=== PATIENT | female | born 1995 | race Caucasian/White ===

== ENCOUNTER 2019-09-20 03:53 | Emergency (ER) | payer BC, OTHER ==
--- NOTE | 2019-09-20 04:04 | ERPHSYRPT ---
- History of Present Illness Time Seen by Provider: 09/20/19 04:04 Source: patient Exam Limitations: no limitations Physician History: Pt is here with c/c of low back pain that has been chronic since the age of 16 y.o but worse in the last 3 days to where it is difficult to walk. Pt notes that she has had difficulty walking and moving at all. Pt states that she took Naprosyn around 9 pm yesterday and it didn't help. Pt drove herself her to the hospital. Pt has no other medical issues except for anxiety and depression. Timing/Duration: day(s) (3) Method of Injury: unknown, other (sttes no injury) Quality: sharp, stabbing Back Pain Location: lumbar spine Severity of Pain-Max: severe Severity of Pain-Current: severe Modifying Factors: Improves With: movement Associated Symptoms: lower back pain, muscle spasms, No dizziness, No numbness in legs/feet, No weakness, No sensory/motor loss, No tingling in legs/feet Previous symptoms: same symptoms as today, other (pt states that she has a diagnosis of unlevel pelvis and has worn kaitlynn lifts for 2 years without help. ) Allergies/Adverse Reactions: bee venom protein (honey bee) Allergy (Verified 09/20/19 04:20) Home Medications: Venlafaxine HCl [Venlafaxine HCl ER] 37.5 mg PO DAILY 09/20/19 [History] hydrOXYzine HCl [Hydroxyzine HCl] 50 mg PO QID PRN 09/20/19 [History] Hx Tetanus, Diphtheria Vaccination/Date Given: Yes Hx Influenza Vaccination/Date Given: No Hx Pneumococcal Vaccination/Date Given: No - Review of Systems Constitutional: No Symptoms, No Fever Eyes: No Symptoms Ears, Nose, & Throat: No Symptoms Respiratory: No Symptoms Cardiac: No Symptoms Abdominal/Gastrointestinal: No Symptoms Genitourinary Symptoms: No Symptoms Musculoskeletal: Back Pain, Joint Pain (lumbosacral junction at right SI) Skin: No Symptoms Neurological: No Symptoms Psychological: No Symptoms Endocrine: No Symptoms All Other Systems: Reviewed and Negative - Past Medical History Pertinent Past Medical History: Yes Neurological History: No Pertinent History ENT History: No Pertinent History Cardiac History: No Pertinent History Respiratory History: No Pertinent History Endocrine Medical History: No Pertinent History Musculoskeletal History: Other (uneven pelvis or short leg and chronic back pain ) History: No Pertinent History Psycho-Social History: Anxiety, Depression - Past Surgical History Past Surgical History: No Neuro Surgical History: No Pertinent History Cardiac: No Pertinent History Respiratory: No Pertinent History Gastrointestinal: No Pertinent History Genitourinary: No Pertinent History Musculoskeletal: Other (chronic back pain and "unlevel pelvis") Female Surgical History: No Pertinent History - Social History Smoking Status: Former smoker Exposure to second hand smoke: Yes Drug Use: none Patient Lives Alone: No Significant Family History: no pertinent family hx - Female History Hx Now: No ([facility] 2 weeks ago and on BCP's) - Nursing Vital Signs Nursing Vital Signs: Initial Vital Signs Pulse Rate 104 H 09/20/19 03:58 Respiratory Rate 13 09/20/19 03:58 Blood Pressure 122/84 09/20/19 03:58 O2 Sat by Pulse Oximetry 99 09/20/19 03:58 Pain Scale Pain Intensity [Right Hip] 7 Pain Intensity 3 - Physical Exam General Appearance: mild distress, alert, anxiety Eye Exam: PERRL/EOMI Neck Exam: normal inspection Respiratory Exam: normal breath sounds Cardiovascular Exam: regular rate/rhythm Gastrointestinal Exam: soft Pelvic Exam: not done Rectal Exam: not done Back Exam: normal range of motion, vertebral tenderness (minimal), decreased range of motion (due to pain, there is passive ROM with pain voiced by pt. ), muscle spasm, point tenderness (right SI joint) Extremity Exam: normal inspection, limited range of motion, No normal range of motion (Pt limits ROM due to pain. 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, sensation nml, No motor deficits, No sensory deficit, No disoriented, No confusion, No motor weakness, No facial droop, No slurred speech Skin Exam: normal color, warm, dry SpO2 Interpretation: normal SpO2: 99 O2 Delivery: Room Air Ordered Tests: Active Orders 24 hr Category Date Time Status LUMBAR SPINE W/O [CT] Stat Exams 09/20/19 04:37 Taken CULTURE,URINE Stat Lab 09/20/19 07:02 Received UA W/RFX UR CULTURE Stat Lab 09/20/19 07:02 Completed Medication Summary Discontinued Medications Generic Name Dose Route Start Last Admin Trade Name Freq PRN Reason Stop Dose Admin Cyclobenzaprine HCl 10 mg 09/20/19 06:16 Cyclobenzaprine 10 Mg PO 10/20/19 06:15 TID PRN PRN MUSCLE SPASMS Ketorolac Tromethamine 60 mg 09/20/19 04:38 09/20/19 04:47 Toradol 30 Mg Injection IM 09/20/19 04:39 60 mg STAT ONE Administration Ketorolac Tromethamine Confirm 09/20/19 04:42 Toradol 30 Mg Injection Administered 09/20/19 04:43 Dose 60 mg .ROUTE .STK-MED ONE Ketorolac Tromethamine 10 mg 09/20/19 06:15 Toradol 10 Mg Tablet PO 09/25/19 06:14 Q8H PRN PRN MODERATE PAIN Lab/Rad Data: Laboratory Results 09/20/19 Range/Units 07:02 Urine Color YELLOW (YELLOW) Urine Appearance SLIGHTLY CLOUDY (CLEAR) Urine pH 6.0 (5-6) Ur Specific [place] 1.025 (1.005-1.025) Urine Protein NEGATIVE (Negative) Urine Ketones NEGATIVE (NEGATIVE) Urine Blood NEGATIVE (0-5) Chele/ul Urine Nitrite NEGATIVE (NEGATIVE) Urine Bilirubin NEGATIVE (NEGATIVE) Urine Urobilinogen NEGATIVE (0-1) mg/dL Ur Leukocyte Esterase MODERATE (NEGATIVE) Urine WBC (Auto) 6-10 (0-5) /HPF Urine RBC (Auto) 0-2 (0-2) /HPF U Epithel Cells (Auto) MODERATE (FEW) /HPF Urine Bacteria (Auto) MODERATE (NEGATIVE) /HPF Urine Mucus (Auto) SLIGHT (NEGATIVE) /HPF Urine Culture Reflexed YES (NO) Urine Glucose NEGATIVE (NEGATIVE) mg/dL - Progress Progress: improved Progress Note: 09/20/19 06:[address] results showing 1. Bulging of the annuli with impingment on the neural foramina and spinasl stenosis at L4-5 and L5-S1, with central disc protrusion or herniation suspected at L5 S1. - Departure Departure Disposition: Home Clinical Impression: Lumbosacral strain, Lumbar disc herniation Condition: Stable Critical Care Time: No Referrals: NORMA MARMOLEJO [employer] EMPLOYMENT [employer]IATOR [Primary Care Provider] - Instructions: Herniated Disc Prescriptions: Ketorolac Tromethamine [Toradol] 10 mg PO Q8HPRN PRN 7 Days #10 tablet PRN Reason: Pain Cyclobenzaprine HCl 10 mg [Cyclobenzaprine 10 MG] 10 mg PO TID #10 tablet Prednisone 20 mg [Deltasone 20 mg] 20 mg PO DAILY 10 Days #11 tablet
[2019-09-20] MEDS ORDERED: TORAdol 30 mg Injection IM ONE (04:38)
[2019-09-20] MEDS ORDERED: TORAdol 30 mg Injection ONE (04:42)
[2019-09-20] MEDS ORDERED: TORAdol 10 MG TABLET PO PRN (06:15)
[2019-09-20] MEDS ORDERED: Cyclobenzaprine 10 MG PO PRN (06:16)
[2019-09-20 07:05] VITALS: BP 103/71; PULSE 84
[2019-09-20 07:11] LABS: Appearance SLIGHTLY CLOUDY (CLEAR); Bacteria MODERATE /HPF (NEGATIVE); Bilirubin NEGATIVE (NEGATIVE); Blood NEGATIVE Ery/ul (0-5); Epithelial Cells MODERATE /HPF (FEW); Glucose NEGATIVE (NEGATIVE); Ketones NEGATIVE (NEGATIVE); Leukocyte Esterase MODERATE (NEGATIVE); Mucus SLIGHT /HPF (NEGATIVE); Nitrite NEGATIVE (NEGATIVE); Protein,Urine Dip NEGATIVE (Negative); RBC 0-2 /HPF (0-2); Specific Gravity 1.025 (1.005-1.025); Urobilinogen NEGATIVE mg/dL (0-1)
[2019-09-20 07:19] VITALS: O2SAT 99
--- NOTE | 2019-09-20 09:51 | XRAY ---
Indication: Low back pain. No known injury. Multiple contiguous axial images obtained through the lumbar spine. Sagittal and coronal reformatted images obtained. Comparison: None. There is lumbar radiograph dated January 09, 2012. Axial images through the T12-L4 disc levels are unremarkable. Facets are symmetric. At the L4-L5 level, there is mild annular disc bulge slightly effacing the thecal sac and producing bilateral foraminal narrowing. At the L5-S1 level, there is moderate broad-based central disc herniation/protrusion. Sagittal and coronal reformatted images demonstrate normal alignment with vertebral body heights/disc spaces maintained. Small L2 superior endplate Schmorl node. No acute compression fracture or subluxation. Visualized noncontrasted soft tissues unremarkable. Impression: 1. L5-S1 broad-based central disc herniation/protrusion. Outpatient MRI may yield further information. 2. L4-L5 annular disc bulge. 3. L2 Schmorl node. Comment: Preliminary interpretation was made by [facility]. No critical discrepancy. CTDI 8.74
== END 2019-09-20 07:09 | disposition home or self-care (01) ==
LOC: ED 03:53
DX: S39.012A Strain of muscle, fascia and tendon of lower back, initial encounter (principal); G89.4 Chronic pain syndrome; F45.42 Pain disorder with related psychological factors; M54.5 Low back pain; M51.27 Other intervertebral disc displacement, lumbosacral region
CPT/HCPCS: 72131; 81001; 87086; 96372; 99284; J1885